=== PATIENT | female | born 1995 | race Two or more races ===

== ENCOUNTER 2019-10-16 21:01 | Emergency (ER) | payer OTHER ==
[~2019-10-16] VITALS: Ht 160 cm; Wt 84.8 kg
[2019-10-16 21:24] VITALS: BP 118/69
== END 2019-10-16 23:31 | disposition home or self-care (01) ==
LOC: ER 21:04
DX: S93.402A Sprain of unspecified ligament of left ankle, initial encounter (principal); Z88.0 Allergy status to penicillin; Z88.1 Allergy status to other antibiotic agents; X58.XXXA Exposure to other specified factors, initial encounter; Y93.89 Activity, other specified; Y92.89 Other specified places as the place of occurrence of the external cause; Y99.0 Civilian activity done for income or pay
CPT/HCPCS: 73610

== ENCOUNTER 2025-02-01 11:04 | Emergency (ER) | payer MEDICAID, OTHER ==
[~2025-02-01] VITALS: Ht 160 cm; Wt 86.5 kg
--- NOTE | 2025-02-01 11:30 | ED.PDOC ---
History of Present Illness HPI Comments 29-year-old female with no PMHx presents with a chief complaint of animal bite. Patient states that she was at a yard sale and was bit on the right calf by a Pomeranian. Patient mentions that the owners stated that the dog was immunized for rabies but it in December 2024. Patient was sent by Urgent Care to get the rabies vaccine. 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 Family History Family History: Reviewed,noncontributory to illness, No family hx of Cancer, No family hx of DM, No family hx of Heart pancho, No family hx of HTN, No family hx ofKidney pancho, No family hx of Liver pancho, No family hx of Lung pancho, No family hx of Stroke Social History Smoker: Non-Smoker Alcohol: Denies ETOH Use Drugs: Denies Drug Use Lives In: Home Constitutional: denies: chills, diaphoresis, fatigue, fever, malaise, sweats, weakness, others EENTM: denies: blurred vision, double vision, ear bleeding, ear discharge, ear drainage, ear pain, ear ringing, eye pain, eye redness, hearing loss, mouth pain, mouth swelling, nasal discharge, nose bleeding, nose congestion, nose pain, photophobia, tearing, throat pain, throat swelling, voice changes, others Respiratory: denies: cough, hemoptysis, orthopnea, SOB at rest, shortness of breath, SOB with excertion, stridor, wheezing, others Cardiovascular: denies: chest pain, dizzy spells, diaphoresis, Dyspnea on exertion, edema, irregular heart beat, left arm pain, lightheadedness, palpitations, PND, syncope, others Gastrointestinal: denies: abdomen distended, abdominal pain, blood streaked bowels, constipated, diarrhea, dysphagia, difficulty swallowing, hematemesis, melena, nausea, poor appetite, poor fluid intake, rectal bleeding, rectal pain, vomiting, others Genitourinary: denies: abnormal vagina bleeding, burning, dyspareunia, dysuria, flank pain, frequency, hematuria, incontinence, pain, , vagina discharge, urgency, others Neurological: denies: dizziness, fainting, headache, left sided numbness, left sided weakness, numbness, paresthesia, pre-existing deficit, right sided numbn ess, right sided weakness, seizure, speech problems, tingling, tremors, weakness, others Musculoskeletal: denies: back pain, gout, joint pain, joint swelling, muscle pain, muscle stiffness, neck pain, others Integumetry: denies: bruises, change in color, change in hair/nails, dryness, laceration, lesions, lumps, rash, wounds, others Allergic/Immunocompromised: denies: Difficulty Healing, Frequent Infections, Hives, Itching, others Hematologic/Lymphatic: denies: anemia, blood clots, easy bleeding, easy bruising, swollen glands, others Endocrine: denies: excessive hunger, excessive sweating, excessive thirst, excessive urination, flushing, intolerance to cold, intolerance to heat, unexplained weight gain, unexplained weight loss, others Psychiatric: denies: anxiety, bipolar disorder, depression, hopeless, panic disorder, schizophrenia, sleepless, suicidal, others All Other Systems: Reviewed and Negative ( PER HPI) Physical Exam General Appearance: Moderate Distress, Normal HEENT: Normal ENT Inspection, Pharynx Normal, TMs Normal Neck: Full Range of Motion, Non-Tender, Normal, Normal Inspection Respiratory: Chest Non-Tender, Lungs Clear, No Accessory Muscle Use, No Respiratory Distress, Normal Breath Sounds Cardiovascular: No Edema, No JVD, No Murmur, No Gallop, Normal Peripheral Pulses, Regular Rate/Rhythm Breast Exam: Deferred Gastrointestinal: No Organomegaly, Non Tender, No Pulsatile Mass, Normal Bowel Sounds, Soft Genitalia: Deferred Pelvic: Deferred Rectal: Deferred Extremities: No calf tenderness, Normal capillary refill, Normal inspection, Normal range of motion, Non-tender, No pedal edema Musculoskeletal : Apperance: Normal Neurologic: Alert, 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 Was a procedure done?: No Differential Dx Considerations may include: Dog bite X-Ray, Labs, Meds, VS Vital Signs Date Time Temp Pulse Resp B/P (MAP) Pulse Ox O2 Delivery O2 Flow Rate FiO2 02/01/25 12:13 98 16 96 Room Air* 0 21 02/01/25 11:53 98.1 64 16 102/72 (82) 98 98.1 02/01/25 11:53 64 16 98 Room Air 02/01/25 11:12 97.9 62 16 127/76 (93) 97 97.9 Current Medications Medications (Trade) Dose Ordered Sig/Wilian Route Start Time Stop Time Status Last Admin Diphtheria/ Tetanus/Acell Pertussis (Boostrix T-Dap) 0.5 ml ONCE ONCE IM 02/01/25 11:30 02/01/25 11:31 DC 02/01/25 12:07 Rabies Vaccine (Rabavert) 2.5 units ONCE ONCE IM 02/01/25 11:30 02/01/25 11:31 DC 02/01/25 12:08 Patient alert. Dog bite. Vitals stable. Answering questions. Was given tetanus. Was given rabies vaccine. Not a deep bite. Was able to cleaned the wound. Was given prescription Augmentin antibiotic. She was explained to go to [facility] for follow up as soon as possible. Was told to follow up with her primary care physician. Was told to come back if there is any problem. Time of 1ST Reevaluation: 11:47 Reevaluation 1ST: Improved Patient Education/Counseling: Diagnosis, Treatment, Need For Follow Up Family Education/Counseling: No Family Present SEPSIS Sepsis Screen Date sepsis recognized/suspect: Feb 01, 2025 Time Sepsis recognized/suspect: 111 Recent Procedure: No On Antibiotic Therapy: No Respiratory Rate >20: No Heart Rate >90: No Temp<36 C (96.8 F) or >38.3 C: No SBP <90 or MAP <65 mmHG: No New Acute Mental Status Change: No Is the patient on CPAP, BIPAP,: No Vital Signs Date Time Temp Pulse Resp B/P (MAP) Pulse Ox O2 Delivery O2 Flow Rate FiO2 02/01/25 12:13 98 16 96 Room Air* 0 21 02/01/25 11:53 98.1 64 16 102/72 (82) 98 98.1 02/01/25 11:53 64 16 98 Room Air 02/01/25 11:12 97.9 62 16 127/76 (93) 97 97.9 Medications Medications Dose Ordered Sig/Wilian Route Start Time Stop Time Status Last Admin Dose Admin Diphtheria/ Tetanus/Acell Pertussis 0.5 ml ONCE ONCE IM 02/01/25 11:30 02/01/25 11:31 DC 02/01/25 12:07 Rabies Vaccine 2.5 units ONCE ONCE IM 02/01/25 11:30 02/01/25 11:31 DC 02/01/25 12:08 Departure 1 Departure Time of Disposition: 12:47 Impression: Primary Impression: Dog bite Qualified Codes: W54.0XXA - Bitten by dog, initial encounter Disposition: HOME / SELF CARE / HOMELESS Condition: Good e-Prescriptions Levofloxacin Hemihydrate (LEVOFLOXACIN) 500 Mg Tab 500 MG PO DAILY for 7 Days, #7 MG Prov: STEVE GARCIA MD 02/01/25 Amoxicillin & Pot Clavulanate (Augmentin) 500 Mg Tab 1 TAB PO BID for 7 Days, #14 TAB Prov: STEVE GARCIA MD 02/01/25 Discharged With: Self Critical Care Note Critical Care Time?: No Stability Stability form required: No Heart Score Heart Score: Heart Score Response (Comments) Value History N/A 0 EKG N/A 0 Age N/A 0 Risk Factors N/A 0 Troponin N/A 0 Total 0 I personally scribed for STEVE GARCIA MD ([email or web address]) on 02/01/25 at 11:30. Electronically submitted by Juvenal Kendall ([email or web address]). STEVE GARCIA MD Feb 01, 2025 11:30
[2025-02-01 11:53] VITALS: BP 102/72; TEMP 98.1
[2025-02-01] MEDS: TETANUS-DIPTH-ACEL PERTUSSIS 0.5ML SYR Tdap IM ONE (12:07)
[2025-02-01] MEDS: RABIES VACCINE (PCEC)/PF 2.5 UNITS IM ONE (12:08)
[2025-02-01 12:13] VITALS: PULSE 98; RESP 16; O2SAT 96
[2025-02-01] MEDS ORDERED: AMOX500T86 PO (12:47)
[2025-02-01] MEDS ORDERED: LEVO500T91 PO (13:09)
== END 2025-02-01 12:53 | disposition home or self-care (01) ==
LOC: ER 11:04
DX: S81.851A Open bite, right lower leg, initial encounter (principal); Z88.0 Allergy status to penicillin; Z23 Encounter for immunization; Z79.899 Other long term (current) drug therapy; W54.0XXA Bitten by dog, initial encounter; Y93.89 Activity, other specified; Y92.89 Other specified places as the place of occurrence of the external cause; Y99.8 Other external cause status
CPT/HCPCS: 90471; 90472; 90675; 90715

== ENCOUNTER 2025-02-03 13:31 | Emergency (ER) | payer MEDICAID ==
[~2025-02-03] VITALS: Ht 160 cm; Wt 84.1 kg
[~2025-02-03 13:31] MED LIST: AMOX500T86 PO; LEVO500T91 PO
--- NOTE | 2025-02-03 15:16 | ED.PDOC ---
History of Present Illness(SKN HPI Comments 29-year-old female presents for second rabies vaccine Patient was bitten by a dog on her right calf and got her first rabies vaccine. Patient mentions that she was informed to come back on Day 3 for the next vaccine in the series. No other complaint or concern. Chief Complaint: Animal Bite Time Seen by MD: 14:46 History of Present Illness: Nurses Notes, Medications, Allergies Allergies: Coded Allergies: Amoxicillin (Verified Allergy, Unknown, 10/16/19) Penicillins (Verified Allergy, Unknown, 10/16/19) Home Meds Active Scripts Levofloxacin Hemihydrate (LEVOFLOXACIN) 500 Mg Tab, 500 MG PO DAILY for 7 Days, #7 MG Prov:STEVE GARCIA MD 02/01/25 Amoxicillin & Pot Clavulanate (Augmentin) 500 Mg Tab, 1 TAB PO BID for 7 Days, #14 TAB Prov:STEVE GARCIA MD 02/01/25 Information Source: Patient Mode of Arrival: Ambulatory Past Medical History PAST MEDICAL HISTORY: Denies Surgical History: Denies all surgeries 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: No Pertinent 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 History Family History Family History: Reviewed,noncontributory to illness, No family hx of Cancer, No family hx of DM, No family hx of Heart pancho, No family hx of HTN, No family hx ofKidney pancho, No family hx of Liver pnacho, No family hx of Lung pancho, No family hx of Stroke Social History Smoker: Non-Smoker Alcohol: Denies ETOH Use Drugs: Denies Drug Use Lives In: Home All Other Systems: Reviewed and Negative ( PER HPI) Physical Exam General Appearance: No Apparent Distress, Normal HEENT: Normal ENT Inspection, Pharynx Normal, TMs Normal Neck: Full Range of Motion, Non-Tender, Normal, Normal Inspection Respiratory: Chest Non-Tender, Lungs Clear, No Accessory Muscle Use, No Respiratory Distress, Normal Breath Sounds Cardiovascular: No Edema, No JVD, No Murmur, No Gallop, Normal Peripheral Pulses, Regular Rate/Rhythm Breast Exam: Deferred Gastrointestinal: No Organomegaly, Non Tender, No Pulsatile Mass, Normal Bowel Sounds, Soft Genitalia: Deferred Pelvic: Deferred Rectal: Deferred Extremities: No calf tenderness, Normal capillary refill, Normal inspection, Normal range of motion, Non-tender, No pedal edema Musculoskeletal : Apperance: Normal 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 Was a procedure done?: No Differential Diagnosis (INTG) Differential Diagnosis: Puncture Wound, Other X-Ray, Labs, Meds, VS Vital Signs Date Time Temp Pulse Resp B/P (MAP) Pulse Ox O2 Delivery O2 Flow Rate FiO2 02/03/25 17:08 98.7 75 17 125/70 (88) 96 98.7 02/03/25 15:13 66 16 96 Room Air 02/03/25 15:13 98.7 66 16 114/69 (84) 96 98.7 02/03/25 14:15 98.6 78 17 120/68 (85) 99 98.6 X-Ray, Labs, Meds, VS Comment Patient presents for 2nd rabies vaccine. Medication was administered with no adverse reactions. Patient was monitored for an extensive amount of time Advised to return on days seven and 14 and patient verbalized understanding Patient is stable for discharge at this time. External notes reviewed. Test results and diagnostic imaging interpreted. All diagnostic findings, discharge care, education and instructions provided Follow-up with PCP in 2 to 3 days Patient verbalized understanding and agreed to treatment plan Vital signs stable, afebrile, no acute distress noted Patient ambulatory with strong steady gait Advised to return precautions for any new or worsening symptoms, return to ER immediately for re-evaluation Patient is aware that the purpose of this visit was for an acute medical emergency requiring emergent stabilization. Chronic conditions, including malignancies have not been ruled out. Patient is instructed to follow up with PCP as directed and discharge instructions for continued care and workup. If unable to arrange follow-up, patient is to return to the emergency department for reassessment. Patient (parent or legal guardian if applicable) was given verbal and written discharge instructions and acknowledges understanding. Time of 1ST Reevaluation: 15:24 Reevaluation 1ST: Improved Patient Education/Counseling: Diagnosis, Treatment, Prognosis Family Education/Counseling: No Family Present SEPSIS Sepsis Screen Date sepsis recognized/suspect: Feb 03, 2025 Time Sepsis recognized/suspect: 1335 Recent Procedure: No On Antibiotic Therapy: No Respiratory Rate >20: No Heart Rate >90: No Temp<36 C (96.8 F) or >38.3 C: No SBP <90 or MAP <65 mmHG: No New Acute Mental Status Change: No Is the patient on CPAP, BIPAP,: No Vital Signs Date Time Temp Pulse Resp B/P (MAP) Pulse Ox O2 Delivery O2 Flow Rate FiO2 02/03/25 17:08 98.7 75 17 125/70 (88) 96 98.7 02/03/25 15:13 66 16 96 Room Air 02/03/25 15:13 98.7 66 16 114/69 (84) 96 98.7 02/03/25 14:15 98.6 78 17 120/68 (85) 99 98.6 Departure 1 Departure Time of Disposition: 15:15 Impression: Primary Impression: Need for rabies vaccination Additional Impression: Dog bite Qualified Codes: W54.0XXS - Bitten by dog, sequela Disposition: 01 HOME / SELF CARE / HOMELESS Condition: Stable Discharged With: Self Critical Care Note Critical Care Time?: No Stability Stability form required: No Heart Score Heart Score: Heart Score Response (Comments) Value History N/A 0 EKG N/A 0 Age N/A 0 Risk Factors N/A 0 Troponin N/A 0 Total 0 I personally scribed for ABEL LANDRY NP ([email or web address]) on 02/03/25 at 15:32. Electronically submitted by Juvenal Kendall ([email or web address]). ABEL LANDRY NP Feb 03, 2025 15:16
[2025-02-03 17:08] VITALS: BP 125/70; PULSE 75; RESP 17; TEMP 98.7; O2SAT 96
[2025-02-03] MEDS: RABIES VACCINE (PCEC)/PF 2.5 UNITS IM ONE (17:12)
== END 2025-02-03 17:09 | disposition home or self-care (01) ==
LOC: ER 13:31
DX: T14.8XXD Other injury of unspecified body region, subsequent encounter (principal); Z23 Encounter for immunization; Z88.0 Allergy status to penicillin; Z20.3 Contact with and (suspected) exposure to rabies; Z79.899 Other long term (current) drug therapy; W54.0XXD Bitten by dog, subsequent encounter
CPT/HCPCS: 90471; 90675